=== PATIENT | male | born 1965 | race Caucasian/White ===

== ENCOUNTER 2017-01-22 19:09 | Emergency (ER) | payer MEDICAID ==
[~2017-01-22] VITALS: Ht 172.7 cm; Wt 69.0 kg
[2017-01-23 00:49] LABS: CALCIUM 8.5 mg/dL (8.5-10.1)
[2017-01-23] MEDS ORDERED: SODIUM CHLORIDE 0.9% 1,000 ML IV ONE ×2 (01:15→03:30)
[2017-01-23] MEDS ORDERED: INSULIN REGULAR (HUMULIN R) 300UNITS/3ML SUBCUT ONE (03:45)
[2017-01-23 05:35] VITALS: BP 146/78
== END 2017-01-23 05:38 | disposition home or self-care (01) ==
LOC: ER 19:09
DX: E11.65 Type 2 diabetes mellitus with hyperglycemia (principal); Z79.4 Long term (current) use of insulin
CPT/HCPCS: 36415; 80048; 82962; 87804; 96360; 99284; J1815; J7030

== ENCOUNTER 2017-04-13 21:22 | Emergency (ER) | payer MEDICAID ==
[~2017-04-13] VITALS: Ht 175.3 cm; Wt 59.0 kg
[2017-04-14 02:26] VITALS: BP 157/79
[2017-04-14 03:07] LABS: BASOPHILS % 0.9 % (0.0-2.0); EOSINOPHILS % 5.4 % (0.0-5.0); HEMATOCRIT. 37.2 % (42.0-52.0); HEMOGLOBIN. 12.5 g/dL (14.0-18.0); LYMPHOCYTES % 26.1 % (20.0-50.0); MEAN CORPUSCULAR HEMOGLOBIN 29.9 pg (28.0-32.0); MEAN PLATELET VOLUME 7.9 fl (7.4-10.4); MONOCYTES % 7.8 % (2.0-8.0); NEUTROPHILS % 59.8 % (40.0-76.0); PLATELET 197 x1000/uL (130-400); RED BLOOD CELL COUNT 4.18 mill/uL (4.7-6.1); RED CELL DISTRIBUTION WIDTH 13.6 % (11.6-14.6)
[2017-04-14 03:22] LABS: CARBON DIOXIDE 25 mEq/L (21-32); CHLORIDE 107 mEq/L (98-107)
== END 2017-04-14 03:50 | disposition home or self-care (01) ==
LOC: ER 04-14 02:40
DX: R53.1 Weakness (principal); E11.9 Type 2 diabetes mellitus without complications; I10 Essential (primary) hypertension; F17.210 Nicotine dependence, cigarettes, uncomplicated
CPT/HCPCS: 36415; 80053; 82962; 85025; 99284; Z7610

== ENCOUNTER 2017-05-17 18:18 | Emergency (ER) | payer MEDICAID ==
[~2017-05-17] VITALS: Ht 175.3 cm; Wt 61.0 kg
[2017-05-17 23:02] LABS: BASOPHILS % 0.9 % (0.0-2.0); EOSINOPHILS % 1.6 % (0.0-5.0); HEMATOCRIT. 37.7 % (42.0-52.0); HEMOGLOBIN. 12.8 g/dL (14.0-18.0); LYMPHOCYTES % 23.1 % (20.0-50.0); MEAN CORPUSCULAR HEMOGLOBIN 30.8 pg (28.0-32.0); MEAN CORPUSCULAR VOLUME 90.9 fL (80.0-94.0); MEAN PLATELET VOLUME 8.1 fl (7.4-10.4); MONOCYTES % 7.8 % (2.0-8.0); NEUTROPHILS % 66.6 % (40.0-76.0); PLATELET 217 x1000/uL (130-400); RED BLOOD CELL COUNT 4.14 mill/uL (4.7-6.1); RED CELL DISTRIBUTION WIDTH 14.2 % (11.6-14.6)
[2017-05-17 23:06] LABS: CHLORIDE 102 mEq/L (98-107)
[2017-05-17 23:10] LABS: CARBON DIOXIDE 27 mEq/L (21-32); ETHANOL BLOOD < 10 mg/dL
[2017-05-17 23:39] LABS: CLARITY URINE CLEAR (CLEAR); COLOR URINE YELLOW (YELLOW); GLUCOSE URINE 1+ (NEGATIVE); KETONES URINE NEGATIVE (NEGATIVE); LEUKOCYTE ESTERASE URINE NEGATIVE (NEGATIVE); NITRITE URINE NEGATIVE (NEGATIVE); OCCULT BLOOD URINE TRACE (NEGATIVE); PROTEIN URINE 2+ (NEGATIVE); SPECIFIC GRAVITY URINE 1.012 (1.005-1.030); UROBILINOGEN URINE 0.2 E.U./dL (0.2-1.0)
[2017-05-17 23:48] LABS: *AMPHETAMINES SCREEN URINE NEGATIVE (NEGATIVE); *BARBITURATES SCREEN URINE NEGATIVE (NEGATIVE); *BENZODIAZEPINES SCREEN URINE NEGATIVE (NEGATIVE); *COCAINE SCREEN URINE NEGATIVE (NEGATIVE); CANNABINOID URINE SCREEN NEGATIVE (NEGATIVE); METHADONE URINE SCREEN NEGATIVE (NEGATIVE); OPIATES URINE SCREEN NEGATIVE (NEGATIVE); PHENCYCLIDINE URINE SCREEN NEGATIVE (NEGATIVE)
[2017-05-18] MEDS ORDERED: SODIUM CHLORIDE 0.9% 1,000 ML IV NR (00:03)
[2017-05-18 02:30] VITALS: BP 141/79
== END 2017-05-18 03:30 | disposition home or self-care (01) ==
LOC: ER 18:18
DX: E11.649 Type 2 diabetes mellitus with hypoglycemia without coma (principal); I10 Essential (primary) hypertension; E78.00 Pure hypercholesterolemia, unspecified; F17.200 Nicotine dependence, unspecified, uncomplicated; Z79.4 Long term (current) use of insulin; Z98.890 Other specified postprocedural states
CPT/HCPCS: 36415; 80053; 80305; 81001; 82962; 85025; 96360; 96361; 99285; G0482; J7030; Z7610

== ENCOUNTER 2017-08-06 14:04 | Emergency (ER) | payer MEDICAID ==
[~2017-08-06] VITALS: Ht 170.2 cm; Wt 69.0 kg
[2017-08-06] MEDS ORDERED: FLUORESCEIN SODIUM 1MG/STRIP RIGHTEYE ONE (18:30)
[2017-08-06] MEDS ORDERED: TETRACAINE 0.5% OPHTH DROPS 4ML RIGHTEYE ONE (18:30)
[2017-08-06 20:45] VITALS: BP 135/83
== END 2017-08-06 20:45 | disposition home or self-care (01) ==
LOC: ER 14:04
DX: H10.9 Unspecified conjunctivitis (principal); K59.00 Constipation, unspecified; E11.9 Type 2 diabetes mellitus without complications; F17.210 Nicotine dependence, cigarettes, uncomplicated; E78.00 Pure hypercholesterolemia, unspecified; I10 Essential (primary) hypertension; Z86.11 Personal history of tuberculosis
CPT/HCPCS: 74000; 99283

== ENCOUNTER 2018-01-19 09:53 | Emergency (ER) | payer MEDICAID ==
[~2018-01-19] VITALS: Ht 175.3 cm; Wt 62.0 kg
[2018-01-19 12:29] VITALS: BP 128/77
[2018-01-19] MEDS ORDERED: TETRACAINE 0.5% OPHTH DROPS 4ML OP ONE (13:00)
[2018-01-19] MEDS ORDERED: FLUORESCEIN SODIUM 1MG/STRIP OP ONE (13:00)
== END 2018-01-19 13:34 | disposition home or self-care (01) ==
LOC: ER 13:10
DX: H15.101 Unspecified episcleritis, right eye (principal); H10.31 Unspecified acute conjunctivitis, right eye
CPT/HCPCS: 99283

== ENCOUNTER 2019-02-14 16:59 | Emergency (ER) | payer MEDICAID ==
[~2019-02-14] VITALS: Ht 175.3 cm; Wt 73.0 kg
[2019-02-14 18:09] VITALS: BP 151/82
[2019-02-14] MEDS ORDERED: humulin (18:09)
[2019-02-14] MEDS ORDERED: lantus (18:09)
[2019-02-14] MEDS ORDERED: CIPROFLOXACIN 0.3% OPHTH SOLN 2.5ML RIGHTEYE ONE (20:45)
== END 2019-02-14 21:16 | disposition home or self-care (01) ==
LOC: ER 16:59
DX: H10.9 Unspecified conjunctivitis (principal); E11.9 Type 2 diabetes mellitus without complications; E78.00 Pure hypercholesterolemia, unspecified; I10 Essential (primary) hypertension
CPT/HCPCS: 99283

== ENCOUNTER 2019-07-29 12:06 | Emergency (ER) | payer MEDICAID ==
[~2019-07-29] VITALS: Ht 172.7 cm; Wt 75.0 kg
[~2019-07-29 12:06] MED LIST: humulin; lantus
[2019-07-29] MEDS ORDERED: FAMOTIDINE 20MG/2ML VIAL IV STA (12:47)
[2019-07-29] MEDS ORDERED: MAGNESIUM/ALUMINUM HYDROXIDE/SIMETHICONE 30ML UDC PO STA (12:47)
[2019-07-29] MEDS ORDERED: KETOROLAC 30MG/ML VIAL IV STA (12:47)
[2019-07-29] MEDS ORDERED: SODIUM CHLORIDE 0.9% 1,000 ML IV ONE (12:47)
[2019-07-29 13:41] LABS: BASOPHILS % 1.1 % (0.0-2.0); EOSINOPHILS % 1.9 % (0.0-5.0); HEMATOCRIT. 40.6 % (42.0-52.0); HEMOGLOBIN. 13.5 g/dL (14.0-18.0); LYMPHOCYTES % 19.5 % (20.0-50.0); MEAN CORPUSCULAR HEMOGLOBIN 30.3 pg (28.0-32.0); MEAN CORPUSCULAR VOLUME 90.9 fL (80.0-94.0); MEAN PLATELET VOLUME 9.1 fl (7.4-10.4); MONOCYTES % 7.4 % (2.0-8.0); NEUTROPHILS % 70.1 % (40.0-76.0); PLATELET 212 x1000/uL (130-400); RED BLOOD CELL COUNT 4.46 mill/uL (4.7-6.1); RED CELL DISTRIBUTION WIDTH 13.6 % (11.6-14.6)
[2019-07-29 13:50] LABS: CHLORIDE 107 mEq/L (98-107)
[2019-07-29 16:40] LABS: CLARITY URINE CLEAR (CLEAR); COLOR URINE YELLOW (YELLOW); KETONES URINE NEGATIVE (NEGATIVE); LEUKOCYTE ESTERASE URINE NEGATIVE (NEGATIVE); NITRITE URINE NEGATIVE (NEGATIVE); OCCULT BLOOD URINE NEGATIVE (NEGATIVE); PH URINE 7.5 (4.5-8.0); PROTEIN URINE 2+ (NEGATIVE); SPECIFIC GRAVITY URINE 1.015 (1.005-1.030); UROBILINOGEN URINE 0.2 E.U./dL (0.2-1.0)
[2019-07-29 17:43] VITALS: BP 145/88
== END 2019-07-29 17:44 | disposition home or self-care (01) ==
LOC: ER 12:06
DX: R10.13 Epigastric pain (principal); I10 Essential (primary) hypertension; E11.9 Type 2 diabetes mellitus without complications; E78.00 Pure hypercholesterolemia, unspecified; Z79.4 Long term (current) use of insulin
CPT/HCPCS: 36415; 76700; 80053; 81003; 83690; 85025; 93005; 96361; 96374; 96375; 99284; J1885; J3490; J7030; Z7610

== ENCOUNTER 2019-09-04 20:57 | Inpatient (IN) | payer MEDICAID ==
[~2019-09-04] VITALS: Ht 172.7 cm; Wt 82.6 kg
[2019-09-05 01:57] LABS: BASOPHILS % 1.1 % (0.0-2.0); EOSINOPHILS % 4.4 % (0.0-5.0); HEMATOCRIT. 37.3 % (42.0-52.0); HEMOGLOBIN. 12.5 g/dL (14.0-18.0); LYMPHOCYTES % 28.9 % (20.0-50.0); MEAN CORPUSCULAR HEMOGLOBIN 30.4 pg (28.0-32.0); MEAN CORPUSCULAR VOLUME 90.8 fL (80.0-94.0); MONOCYTES % 10.9 % (2.0-8.0); NEUTROPHILS % 54.7 % (40.0-76.0); PLATELET 222 x1000/uL (130-400); RED CELL DISTRIBUTION WIDTH 13.5 % (11.6-14.6)
[2019-09-05 02:03] LABS: CHLORIDE 102 mEq/L (98-107)
[2019-09-05 02:08] LABS: CLARITY URINE CLEAR (CLEAR); COLOR URINE YELLOW (YELLOW); KETONES URINE NEGATIVE (NEGATIVE); LEUKOCYTE ESTERASE URINE NEGATIVE (NEGATIVE); NITRITE URINE NEGATIVE (NEGATIVE); OCCULT BLOOD URINE NEGATIVE (NEGATIVE); PH URINE 5.5 (4.5-8.0); PROTEIN URINE 1+ (NEGATIVE); SPECIFIC GRAVITY URINE 1.013 (1.005-1.030); UROBILINOGEN URINE 0.2 E.U./dL (0.2-1.0)
[2019-09-05 08:45] VITALS: BP 164/82
[2019-09-05] MEDS ORDERED: FUROSEMIDE 40MG/4ML VIAL IV SCH (10:00)
[2019-09-05] MEDS ORDERED: DEXTROSE 50% WATER 50ML SYRINGE IV PRN ×2 (10:00→12:30)
[2019-09-05] MEDS ORDERED: INSLIS SUBCUT (10:27)
[2019-09-05] MEDS ORDERED: INSU100I28 SQ (10:27)
[2019-09-05] MEDS: LISINOPRIL 20MG TABLET PO SCH (10:52)
[2019-09-05] MEDS: INSULIN GLARGINE UD 100 UNITS/ML SYR SUBCUT SCH ×2 (11:47→22:44)
[2019-09-05 12:00] VITALS: BP 102/82
[2019-09-05] MEDS ORDERED: BLOOD SUGAR DIAGNOSTIC STRIP TEST SCH (12:10)
[2019-09-05] MEDS ORDERED: HYDROCODONE/ACETAMINOPHEN 5/325MG TABLET PO PRN (12:30)
[2019-09-05] MEDS ORDERED: DOCUSATE SODIUM 100MG CAPSULE PO PRN (12:30)
[2019-09-05] MEDS ORDERED: MAGNESIUM/ALUMINUM HYDROXIDE/SIMETHICONE 30ML UDC PO PRN (12:30)
[2019-09-05] MEDS ORDERED: CLONIDINE 0.1MG TABLET PO PRN (12:30)
[2019-09-05] MEDS ORDERED: ACETAMINOPHEN 325MG TABLET PO PRN (12:30)
[2019-09-05] MEDS ORDERED: ONDANSETRON HCL 4MG/2ML INJ IV PRN (12:30)
[2019-09-05] MEDS ORDERED: INSULIN LISPRO 100 UNITS/ML SUBCUT SCH (12:40)
[2019-09-05] MEDS: INSULIN LISPRO 100 UNITS/ML SUBCUT SCH ×5 (12:52→20:34)
[2019-09-05] MEDS: ENOXAPARIN 40MG/0.4ML SYR SUBCUT SCH (12:55)
[2019-09-05 13:53] LABS: PHOSPHORUS 3.2 mg/dL (2.5-4.9)
[2019-09-05 16:00] VITALS: BP 123/78
[2019-09-05] MEDS: BLOOD SUGAR DIAGNOSTIC STRIP TEST SCH ×2 (16:26→20:33)
[2019-09-05 20:00] VITALS: BP 123/74
[2019-09-05] MEDS ORDERED: ZOLPIDEM TARTRATE 5MG TABLET PO PRN (21:00)
[2019-09-06] VITALS: BP 116/67
[2019-09-06 04:00] VITALS: BP 139/77
[2019-09-06 06:21] LABS: BASOPHILS % 0.9 % (0.0-2.0); EOSINOPHILS % 3.8 % (0.0-5.0); HEMATOCRIT. 39.1 % (42.0-52.0); HEMOGLOBIN. 13.1 g/dL (14.0-18.0); LYMPHOCYTES % 24.6 % (20.0-50.0); MEAN CORPUSCULAR HEMOGLOBIN 30.3 pg (28.0-32.0); MEAN CORPUSCULAR VOLUME 90.4 fL (80.0-94.0); MEAN PLATELET VOLUME 8.5 fl (7.4-10.4); MONOCYTES % 10.4 % (2.0-8.0); NEUTROPHILS % 60.3 % (40.0-76.0); PLATELET 217 x1000/uL (130-400); RED BLOOD CELL COUNT 4.32 mill/uL (4.7-6.1); RED CELL DISTRIBUTION WIDTH 13.3 % (11.6-14.6)
[2019-09-06] MEDS: BLOOD SUGAR DIAGNOSTIC STRIP TEST SCH ×4 (06:26→21:00)
[2019-09-06] MEDS: INSULIN LISPRO 100 UNITS/ML SUBCUT SCH ×6 (07:02→21:06)
[2019-09-06 08:00] VITALS: BP 112/71
[2019-09-06] MEDS ORDERED: PNEUMOCOCCAL 23-VAL P-SAC VAC 0.5 ML IM ONE (09:00)
[2019-09-06] MEDS ORDERED: INFLUENZA VIRUS VACCINE(AFLURIA) 0.5ML SYR IM ONE (09:00)
[2019-09-06] MEDS: LISINOPRIL 20MG TABLET PO SCH (09:55)
[2019-09-06] MEDS: INSULIN GLARGINE UD 100 UNITS/ML SYR SUBCUT SCH (10:13)
[2019-09-06 12:00] VITALS: BP 131/81
[2019-09-06] MEDS: ENOXAPARIN 40MG/0.4ML SYR SUBCUT SCH (12:52)
[2019-09-06 16:00] VITALS: BP 129/78
[2019-09-06 20:00] VITALS: BP 145/80
[2019-09-07] VITALS: BP 109/52
[2019-09-07 04:00] VITALS: BP 117/75
[2019-09-07] MEDS: BLOOD SUGAR DIAGNOSTIC STRIP TEST SCH ×2 (06:21→12:31)
[2019-09-07] MEDS: INSULIN LISPRO 100 UNITS/ML SUBCUT SCH ×2 (06:32→13:28)
[2019-09-07 07:01] LABS: EOSINOPHILS % 3.9 % (0.0-5.0); HEMATOCRIT. 39.1 % (42.0-52.0); HEMOGLOBIN. 13.1 g/dL (14.0-18.0); MEAN CORPUSCULAR HEMOGLOBIN 30.5 pg (28.0-32.0); MEAN PLATELET VOLUME 8.2 fl (7.4-10.4); MONOCYTES % 9.4 % (2.0-8.0); NEUTROPHILS % 57.7 % (40.0-76.0); PLATELET 232 x1000/uL (130-400); RED CELL DISTRIBUTION WIDTH 13.2 % (11.6-14.6)
[2019-09-07 08:00] VITALS: BP 143/87
[2019-09-07] MEDS: LISINOPRIL 20MG TABLET PO SCH (09:00)
[2019-09-07 12:00] VITALS: BP 124/72
[2019-09-07] MEDS: ENOXAPARIN 40MG/0.4ML SYR SUBCUT SCH (13:29)
[2019-09-07 15:47] VITALS: BP 124/72
[2019-09-07] MEDS ORDERED: INSULIN GLARGINE UD 100 UNITS/ML SYR SUBCUT SCH (22:00)
== END 2019-09-07 16:40 | disposition home or self-care (01) | DRG 469 ==
LOC: ER 21:12 → ENRESERV 09-05 03:13 → CANRESERV 09-05 03:13 → 8WST 09-05 04:42 → EDBEDREQ 09-05 04:47 → EDBEDREQTM 09-05 04:47 → ENRESERV 09-05 07:39
PROVIDERS: ADMIT Internal Medicine; ATTEND Internal Medicine
DX: N17.0 Acute kidney failure with tubular necrosis (principal); E11.22 Type 2 diabetes mellitus with diabetic chronic kidney disease; I12.9 Hypertensive chronic kidney disease with stage 1 through stage 4 chronic kidney disease, or unspecified chronic kidney disease; R60.0 Localized edema; E11.65 Type 2 diabetes mellitus with hyperglycemia; N18.9 Chronic kidney disease, unspecified; E78.5 Hyperlipidemia, unspecified; E44.1 Mild protein-calorie malnutrition; D64.9 Anemia, unspecified; E78.00 Pure hypercholesterolemia, unspecified; N17.9 Acute kidney failure, unspecified; Z79.4 Long term (current) use of insulin; Z68.27 Body mass index [BMI] 27.0-27.9, adult
CPT/HCPCS: 36415; 71045; 73610; 76770; 80048; 80061; 81003; 82962; 83036; 83735; 83880; 84100; 84443; 84484; 90686; 90732; 93005; 93306; 93970; 97162; 97166; 99285; J1650; J1815; J1940

== ENCOUNTER 2019-10-20 12:46 | Emergency (ER) | payer MEDICAID ==
[~2019-10-20] VITALS: Ht 172.7 cm; Wt 71.0 kg
[~2019-10-20 12:46] MED LIST changes: +INSLIS SUBCUT; +INSU100I28 SQ; -humulin; -lantus
[2019-10-20 15:51] VITALS: BP 140/80
== END 2019-10-20 17:00 | disposition left against medical advice (07) ==
LOC: ER 12:46
DX: R73.9 Hyperglycemia, unspecified (principal); Z53.21 Procedure and treatment not carried out due to patient leaving prior to being seen by health care provider
CPT/HCPCS: 82962